=== PATIENT | male | born 1990 | race Caucasian/White ===

== ENCOUNTER 2017-12-03 11:10 | Inpatient (IN) | payer MEDICARE, MEDICAID ==
[~2017-12-03] VITALS: Ht 190.5 cm; Wt 104.3 kg
[~2017-12-03 11:10] MED LIST: AMAN100C12 PO; CARB25TA77 PO; LAMO200T34 PO; LORA2TAB10 PO; PROP60CA34 PO; QUET100T46 PO; TRAZ300T13 PO
[2017-12-03 11:53] LABS: Basophils # (auto) 0.1 uL; Lymphocytes # (auto) 3.3 uL; White Blood Cell 11.6 10^3/uL (4.4-10.8)
[2017-12-03 11:55] LABS: Basophils % (auto) 1.1 % (0.0-2.0); Eosinophils # (auto) 0.1 uL; Eosinophils % (auto) 0.4 % (0.0-7.0); Hematocrit 44.7 % (41.0-53.0); Hemoglobin 15.3 g/dL (13.5-17.5); Lymphocytes % (auto) 28.6 % (10.0-50.0); Mean Corpuscular Hgb Conc. 34.3 g/dL (32.0-36.0); Mean Corpuscular Volume 90.4 fL (80.0-100.0); Monocytes % (auto) 8.5 % (0.0-12.0); Neutrophils # (auto) 7.1 uL; Neutrophils % (auto) 61.4 % (37.0-80.0); Nucleated Red Blood Cells % 0.2 %; Platelet Count (auto) 477 10^3/uL (140-450); Red Blood Cells 4.94 10^6/uL (4.5-5.90); Red Cell Distribution Width 13.9 % (11.8-14.3)
[2017-12-03 12:26] LABS: Albumin 3.3 g/dL (3.4-5.0); BUN/Creatinine Ratio 7.5; Bilirubin, Total 0.4 mg/dL (0.2-1.0); Calcium 8.6 mg/dL (8.5-10.1); Potassium 4.2 mmol/L (3.5-5.1); Total Protein 7.8 g/dL (6.4-8.2)
[2017-12-03] MEDS ORDERED: SODIUM CHLORIDE 0.9% 1,000 ML IV ONE (14:31)
[2017-12-03] MEDS ORDERED: KETOROLAC TROMETH 30 MG/ML 1ML VIAL IV ONE (14:45)
[2017-12-03 15:06] LABS: Basophils # (auto) 0.1 uL; Basophils % (auto) 0.8 % (0.0-2.0); Eosinophils # (auto) 0 uL; Eosinophils % (auto) 0.4 % (0.0-7.0); Monocytes # (auto) 0.9 uL; Nucleated Red Blood Cells % 0.1 %
[2017-12-03 15:08] LABS: Hematocrit 44.4 % (41.0-53.0); Hemoglobin 15.2 g/dL (13.5-17.5); Lymphocytes # (auto) 3.2 uL; Lymphocytes % (auto) 30.9 % (10.0-50.0); Mean Corpuscular Hemoglobin 30.6 pg (28.0-32.0); Mean Corpuscular Hgb Conc. 34.2 g/dL (32.0-36.0); Mean Corpuscular Volume 89.4 fL (80.0-100.0); Monocytes % (auto) 8.9 % (0.0-12.0); Neutrophils # (auto) 6.1 uL; Platelet Count (auto) 469 10^3/uL (140-450); Red Blood Cells 4.97 10^6/uL (4.5-5.90); White Blood Cell 10.3 10^3/uL (4.4-10.8)
[2017-12-03 15:31] LABS: Alanine Aminotransferase 44 U/L (16-61); Albumin 3.2 g/dL (3.4-5.0); Alkaline Phosphatase 136 U/L (45-117); Anion Gap 7 (5-15); Aspartate Aminotransferase 30 U/L (15-37); BUN/Creatinine Ratio 7.8; Bilirubin, Total 0.1 mg/dL (0.2-1.0); Blood Urea Nitrogen 9 mg/dL (7-18); Calcium 8.6 mg/dL (8.5-10.1); Carbon Dioxide 24 mmol/L (21-32); Chloride 107 mmol/L (98-107); GFR African American 97 mL/min; GFR Non-African American 80 mL/min; Glucose 97 mg/dL (74-106); Potassium 4.2 mmol/L (3.5-5.1); Sodium 138 mmol/L (136-145); Total Protein 7.7 g/dL (6.4-8.2)
[2017-12-03 15:52] LABS: INR 0.95 (0.9-1.15); Partial Thromboplastin Time 33.2 sec (23.78-33.04); Prothrombin Time 10.2 sec (9.27-12.13)
[2017-12-03] MEDS: SODIUM CHLORIDE 0.9% 1,000 ML IV SCH (18:28)
[2017-12-03] MEDS ORDERED: PROMETHAZINE HCL 25 MG/ML 1ML IV PRN (18:30)
[2017-12-03] MEDS ORDERED: LACTULOSE 20Gm/30ML SOLN PO PRN (18:30)
[2017-12-03] MEDS ORDERED: HYDROcodone-ACET 5/325MG TAB PO PRN (18:30)
[2017-12-03] MEDS ORDERED: VANCOMYCIN PER PHARMACY 0 MG IV SCH (18:30)
[2017-12-03] MEDS ORDERED: ACETAMINOPHEN 500 MG TAB PO PRN (18:30)
[2017-12-03] MEDS ORDERED: NITROGLYCERIN 0.4 MG SL TAB SL PRN (18:30)
[2017-12-03] MEDS ORDERED: MORPHINE SULFATE 4 MG/ML SYR/VIAL IV PRN ×2 (18:30)
[2017-12-03] MEDS ORDERED: VANCOMYCIN 1GM/250ML 250 ML IV ONE (18:30)
[2017-12-03] MEDS ORDERED: ALPRAZolam 0.5 MG TAB PO PRN (19:15)
[2017-12-03] MEDS ORDERED: GABAPENTIN 300 MG CAP PO SCH (22:00)
[2017-12-03] MEDS ORDERED: traZODone HCL 50 MG TAB PO SCH (22:00)
[2017-12-03] MEDS ORDERED: QUEtiapine FUMARATE 100 MG TAB PO SCH (22:00)
[2017-12-03] MEDS: cloNIDine HCL 0.1 MG TAB PO SCH (22:00)
[2017-12-03] MEDS: LORazepam 0.5 MG TAB PO SCH (22:02)
[2017-12-03] MEDS: PROPRANOLOL HCL 20 MG TAB PO SCH (22:03)
[2017-12-03] MEDS: DOCUSATE SOD 100 MG CAP PO SCH (22:03)
[2017-12-04] MEDS: VANCOMYCIN 1GM/250ML 250 ML IV SCH ×2 (03:00→11:00)
[2017-12-04] MEDS: SODIUM CHLORIDE 0.9% 1,000 ML IV SCH ×2 (04:26→14:28)
[2017-12-04] MEDS ORDERED: GABAPENTIN 300 MG CAP PO SCH ×2 (06:00→12:00)
[2017-12-04] MEDS: PROPRANOLOL HCL 20 MG TAB PO SCH ×2 (06:00→15:13)
[2017-12-04] MEDS ORDERED: QUEtiapine FUMARATE 25 MG TAB PO SCH ×2 (06:00→12:00)
[2017-12-04 07:43] LABS: Basophils # (auto) 0.1 uL; Basophils % (auto) 1.2 % (0.0-2.0); Eosinophils # (auto) 0 uL; Eosinophils % (auto) 0.2 % (0.0-7.0); Hematocrit 43.7 % (41.0-53.0); Hemoglobin 14.8 g/dL (13.5-17.5); Lymphocytes # (auto) 2.3 uL; Lymphocytes % (auto) 24.2 % (10.0-50.0); Mean Corpuscular Hemoglobin 30.1 pg (28.0-32.0); Mean Corpuscular Hgb Conc. 33.8 g/dL (32.0-36.0); Mean Corpuscular Volume 89.1 fL (80.0-100.0); Monocytes # (auto) 0.9 uL; Monocytes % (auto) 9.2 % (0.0-12.0); Neutrophils # (auto) 6.3 uL; Neutrophils % (auto) 65.2 % (37.0-80.0); Platelet Count (auto) 428 10^3/uL (140-450); Red Blood Cells 4.91 10^6/uL (4.5-5.90); Red Cell Distribution Width 14.2 % (11.8-14.3); White Blood Cell 9.6 10^3/uL (4.4-10.8)
[2017-12-04 07:52] LABS: Bilirubin, Total 0.2 mg/dL (0.2-1.0); Calcium 8.5 mg/dL (8.5-10.1); Potassium 4.3 mmol/L (3.5-5.1)
[2017-12-04] MEDS ORDERED: cefTRIAXone 1GM/10ml IVPUSH 10 ML IV SCH (09:00)
[2017-12-04] MEDS ORDERED: lamoTRIgine 100 MG TAB PO SCH ×2 (10:00)
[2017-12-04] MEDS: cloNIDine HCL 0.1 MG TAB PO SCH (10:00)
[2017-12-04] MEDS: LORazepam 0.5 MG TAB PO SCH (10:00)
[2017-12-04] MEDS: DOCUSATE SOD 100 MG CAP PO SCH (10:00)
[2017-12-04] MEDS ORDERED: PANTOPRAZOLE 40 MG TAB PO SCH (10:00)
[2017-12-04] MEDS ORDERED: BUPIVACAINE HCL 0.25% P/F 10 ML VIAL ONE (10:54)
[2017-12-04] MEDS ORDERED: ceFAZolin 1GM VL IV ONE (11:00)
[2017-12-04] MEDS ORDERED: fentaNYL CITRATE 100 MCG/2 ML VL ONE (11:07)
[2017-12-04] MEDS ORDERED: ePHEDrine SULFATE 50 MG/ML AMP IV PRN (12:15)
[2017-12-04] MEDS ORDERED: hydrALAZINE HCL 20 MG/ML VL IV PRN (12:15)
[2017-12-04] MEDS ORDERED: ONDANSETRON HCL 4 MG/2 ML VIAL IV ONE (12:15)
[2017-12-04] MEDS ORDERED: HYDROcodone-ACET 10/325MG TAB PO PRN (12:30)
[2017-12-04 12:40] VITALS: BP 128/79
[2017-12-04] MEDS ORDERED: fentaNYL CITRATE 100 MCG/2 ML VL IV ONE (13:00)
[2017-12-04] MEDS ORDERED: LORazepam 0.5 MG TAB PO ONE (15:15)
[2017-12-04] MEDS ORDERED: QUEtiapine FUMARATE 25 MG TAB PO ONE (17:00)
[2017-12-04] MEDS ORDERED: ceFAZolin 1GM/50ML 50 ML IV SCH (18:00)
[2017-12-04] MEDS ORDERED: OLANZapine 5 MG TAB PO SCH (18:00)
== END 2017-12-04 15:00 | disposition home or self-care (01) | DRG 501 ==
LOC: ER 11:14 → OVERFLOW 11:15 → CENTRAL 12-04 08:15
PROVIDERS: ADMIT Internal Medicine; ATTEND Internal Medicine
PROC: 0MB40ZZ Excision of Left Elbow Bursa and Ligament, Open Approach (ICD-10-PCS; principal; 2017-12-04 11:00)
DX: M71.122 Other infective bursitis, left elbow (principal); G11.9 Hereditary ataxia, unspecified; F12.90 Cannabis use, unspecified, uncomplicated; F41.9 Anxiety disorder, unspecified; R25.1 Tremor, unspecified; G40.409 Other generalized epilepsy and epileptic syndromes, not intractable, without status epilepticus; I10 Essential (primary) hypertension; J45.909 Unspecified asthma, uncomplicated; X58.XXXA Exposure to other specified factors, initial encounter; S50.02XA Contusion of left elbow, initial encounter; Y93.89 Activity, other specified; Y92.89 Other specified places as the place of occurrence of the external cause; Z87.828 Personal history of other (healed) physical injury and trauma; Z82.49 Family history of ischemic heart disease and other diseases of the circulatory system; Z82.5 Family history of asthma and other chronic lower respiratory diseases; Z87.820 Personal history of traumatic brain injury; Z98.2 Presence of cerebrospinal fluid drainage device; Z79.899 Other long term (current) drug therapy; Z91.041 Radiographic dye allergy status; Z88.2 Allergy status to sulfonamides; Z87.81 Personal history of (healed) traumatic fracture
CPT/HCPCS: 36415; 71045; 73200; 80053; 84484; 85025; 85610; 85652; 85730; 86850; 86900; 86901; 87040; 87070; 87075; 87205; 93005; 96365; 96375; J0690; J1885; J3490

== ENCOUNTER 2017-12-18 09:51 | Day surgery (SDC) | payer MEDICARE, MEDICAID ==
[~2017-12-18] VITALS: Ht 30.5 cm; Wt 0.5 kg
[2017-12-18] MEDS ORDERED: ceFAZolin 1GM/50ML 50 ML IV ONE (11:08)
[2017-12-18] MEDS ORDERED: fentaNYL CITRATE 100 MCG/2 ML VL ONE ×2 (11:54→12:52)
[2017-12-18] MEDS ORDERED: LIDOCAINE 1% (LOCAL ANESTH.) PF 5ml SDV ONE (12:18)
[2017-12-18] MEDS ORDERED: PROPOFOL 10 MG/ML 20 ML IV ONE (12:52)
[2017-12-18] MEDS ORDERED: hydrALAZINE HCL 20 MG/ML VL IV PRN (13:45)
[2017-12-18] MEDS ORDERED: ePHEDrine SULFATE 50 MG/ML AMP IV PRN (13:45)
[2017-12-18] MEDS ORDERED: MORPHINE SULFATE 4 MG/ML SYR/VIAL IV PRN (13:45)
[2017-12-18 14:15] VITALS: BP 141/73
== END 2017-12-18 14:20 | disposition home or self-care (01) ==
LOC: SUR 09:51
PROVIDERS: ATTEND Orthopaedic Surgery
DX: M70.22 Olecranon bursitis, left elbow (principal); J45.909 Unspecified asthma, uncomplicated; I10 Essential (primary) hypertension; K21.9 Gastro-esophageal reflux disease without esophagitis; F17.210 Nicotine dependence, cigarettes, uncomplicated; Z91.013 Allergy to seafood; Z79.899 Other long term (current) drug therapy; Z91.041 Radiographic dye allergy status; Z79.2 Long term (current) use of antibiotics; Z93.0 Tracheostomy status
CPT/HCPCS: 23931; J0690; J2270; J2704; J3010